=== PATIENT | male | born 1945 | race Caucasian/White ===

== ENCOUNTER 2021-09-20 21:54 | Emergency (ER) | payer OTHER, MEDICARE ==
[~2021-09-20] VITALS: Ht 170.2 cm; Wt 131.8 kg
[~2021-09-20 21:54] MED LIST: ATOR40TA71 PO; CHOL20004 PO; FURO40TA4 PO; LANTUS SQ; LINE600T11 PO; LISI40TA13 PO; METF-436 PO; POTA-192 PO; RIVA20TA PO
[2021-09-20 22:07] VITALS: BP 134/74
[2021-09-21] MEDS ORDERED: LIDO700A32 TOP (00:25)
[2021-09-21] MEDS ORDERED: acetaminophen 325mg tablet PO ONE (00:25)
[2021-09-21] MEDS ORDERED: LIDOcaine 5% patch TP SCH (00:52)
== END 2021-09-21 01:00 | disposition home or self-care (01) ==
LOC: ER 21:55
DX: M13.862 Other specified arthritis, left knee (principal); I11.9 Hypertensive heart disease without heart failure; E78.00 Pure hypercholesterolemia, unspecified; Z79.899 Other long term (current) drug therapy; Z79.84 Long term (current) use of oral hypoglycemic drugs
CPT/HCPCS: 73564; 99283